=== PATIENT | female | born 1995 | race Caucasian/White ===

== ENCOUNTER 2017-02-20 17:34 | Emergency (ER) | payer MEDICAID, OTHER ==
[2017-02-20 18:08] VITALS: BP 127/80; PULSE 72; RESP 18; TEMP 99.1; O2SAT 100
--- NOTE | 2017-02-20 19:52 | ED PDOC ---
Lower Extremity Pain/Injury Time Seen by Provider: 02/20/17 19:36 Chief Complaint (Nursing): Lower Extremity Problem/Injury Chief Complaint (Provider): Lower extremity discomfrot History Per: Patient History/Exam Limitations: no limitations Onset/Duration Of Symptoms: Intermittent Episodes, Persistent (for 1 year), Worse Since (4 days ago) Current Symptoms Are (Timing): Still Present Additional Complaint(s): The patient is a 22yo female, presents to the ED for evaluation of "electric shock sensation" emanating from her foot up to her back and to her right upper extremity, intermittently present for the past year and worsening over the past 4 days. She denies any weakness, numbness, back pain. Patient additionally complaining of right calf pain. She offers no additional medical complaints. Past Medical History Reviewed: Historical Data, Nursing Documentation, Vital Signs Vital Signs: Last Vital Signs Temp 99.1 F 02/20/17 18:05 Pulse 72 02/20/17 18:05 Resp 18 02/20/17 18:05 BP 127/80 02/20/17 18:05 Pulse Ox 100 02/20/17 18:05 - Medical History PMH: Gastritis, Hiatal Hernia Denies: Chronic Kidney Disease - Surgical History Surgical History: No Surg Hx - Family History Family History: States: Unknown Family Hx - Home Medications Home Medications: Ambulatory Orders Medication Instructions Recorded Azithromycin [Zithromax Z-Talat] 250 mg PO DAILY #6 tab 09/07/15 Naproxen [Naprosyn] 500 mg PO BID PRN #30 tab 11/03/15 Ondansetron [Zofran] 4 mg PO Q8H PRN #10 tab 01/20/16 - Allergies Allergies/Adverse Reactions: Allergies Allergy/AdvReac Type Severity Reaction Status Date / Time almond Allergy ANAPHYLAXIS Verified 02/20/17 18:04 tuberculin,PPD,multi-puncture Allergy URTICARIA Verified 02/20/17 18:04 warfarin Allergy ITCHING Verified 02/20/17 18:04 Review of Systems ROS Statement: Except As Marked, All Systems Reviewed And Found Negative Constitutional: Negative for: Weakness Musculoskeletal: Positive for: Leg Pain (right calf pain), Other ("electric shock sensation" on right lower extremity, right back, and right side of neck; ) Neurological: Negative for: Weakness, Numbness Physical Exam - Reviewed Nursing Documentation Reviewed: Yes Vital Signs Reviewed: Yes - Physical Exam Appears: Positive for: Well, Non-toxic, No Acute Distress Head Exam: Positive for: ATRAUMATIC, NORMAL INSPECTION, NORMOCEPHALIC Skin: Positive for: Normal Color, Warm, DRY Eye Exam: Positive for: Normal appearance Neck: Positive for: Normal, Supple Cardiovascular/Chest: Positive for: Regular Rate, Rhythm Respiratory: Negative for: Respiratory Distress Pulses-Dorsalis Pedis (L): 2+ Pulses-Dorsalis Pedis (R): 2+ Pulses-Post. Tibialis (L): 2+ Pulses-Post. Tibialis (R): 2+ Gastrointestinal/Abdominal: Positive for: Normal Exam Back: Positive for: Normal Inspection. Negative for: Vertebral Tenderness Extremity: Positive for: Normal ROM, Other (bilateral lower extremities with 4/ 4 motor strenght; bilateral lower extremity proprioreception intact.). Negative for: Deformity, Swelling Neurologic/Psych: Positive for: Alert, Oriented. Negative for: Motor/Sensory Deficits - ECG O2 Sat by Pulse Oximetry: 100 (RA) Pulse Ox Interpretation: Normal Medical Decision Making Medical Decision Making: Time: 1950 Impression: rule out DVT Plan: -- US Doppler Lower extremity Reassess Scribe Attestation: Documented by Monalisa Escobar acting as a scribe for Eugene Akhtar MD. Provider Attestation: All medical record entries made by the Scribe were at my direction and personally dictated by me. I have reviewed the chart and agree that the record accurately reflects my personal performance of the history, physical exam, medical decision making, and the department course for this patient. I have also personally directed, reviewed, and agree with the discharge instructions and disposition. Disposition - Clinical Impression Clinical Impression: Leg paresthesia - Patient ED Disposition Is Patient to be Admitted: No Counseled Patient/Family Regarding: Studies Performed, Diagnosis, Need For Followup, Rx Given - Disposition Referrals: Rolando Lr MD [Medical Doctor] - Disposition: Routine/Home Disposition Time: 21:40 Condition: FAIR Instructions: Paresthesia (ED)
--- NOTE | 2017-02-20 21:48 | US ---
EXAM: US Duplex Right Lower Extremity Veins CLINICAL HISTORY: 22 years old, female; Pain; Leg, upper and leg, lower; Right; Additional info: R/O dvt TECHNIQUE: Real-time ultrasound scan of the veins of the right lower extremity with color Doppler flow, spectral waveform analysis and compression. COMPARISON: No relevant prior studies available. FINDINGS: Deep veins: Normal color and spectral Doppler flow. Normal compressibility. No deep vein thrombosis from common femoral to popliteal vein. Superficial veins: No thrombosis. Soft tissues: No popliteal cyst. IMPRESSION: 1. No evidence of DVT within RIGHT lower extremity. 2. Incidental/non-acute findings are described above.
== END 2017-02-20 22:16 | disposition home or self-care (01) ==
LOC: H.ER 17:34
DX: R20.2 Paresthesia of skin (principal)

== ENCOUNTER 2018-01-09 20:38 | Emergency (ER) | payer OTHER ==
--- NOTE | 2018-01-09 21:36 | ED PDOC ---
HPI: Back Time Seen by Provider: 01/09/18 21:10 Chief Complaint (Nursing): Back Pain Chief Complaint (Provider): Right sided back pain History Per: Patient History/Exam Limitations: no limitations Onset/Duration Of Symptoms: Days (x2) Current Symptoms Are (Timing): Still Present Quality Of Discomfort: "Pain" Additional Complaint(s): 22 y/o female presents to the ED with right sided back pain. Patient reports it began yesterday morning prompting her to visit her PMD. Upon seeing her PMD she was diagnosed with a muscle spasm. She was given a prescription for Robaxin which she last took at noon today with no relief. Patient states the pain worsens with movement and describes it as "sharp" or squeezing pain. Denies any fall, trauma, history of back pain, fever, chills, cough, SOB, abdominal pain, nausea, vomiting, diarrhea, urinary symptoms, incontinence, saddle anesthesia, weakness, or numbness. LMP: 12/02/2017 PMD: none provided Past Medical History Reviewed: Historical Data, Nursing Documentation, Vital Signs Vital Signs: Last Vital Signs Temp 98.3 F 01/09/18 21:05 Pulse 99 H 01/09/18 21:05 Resp 20 01/09/18 21:05 BP 115/76 01/09/18 21:05 Pulse Ox 98 01/09/18 21:05 - Medical History PMH: Gastritis, Hiatal Hernia Denies: Chronic Kidney Disease - Surgical History Surgical History: No Surg Hx - Family History Family History: States: Unknown Family Hx - Social History Current smoker - smoking cessation education provided: No Ex-Smoker (has not smoked in the last 12 months): No Alcohol: None Drugs: Denies - Home Medications Home Medications: Ambulatory Orders Medication Instructions Recorded Azithromycin [Zithromax Z-Talat] 250 mg PO DAILY #6 tab 09/07/15 Naproxen [Naprosyn] 500 mg PO BID PRN #30 tab 11/03/15 Ondansetron [Zofran] 4 mg PO Q8H PRN #10 tab 01/20/16 Cyclobenzaprine [Cyclobenzaprine 10 mg PO Q8 PRN #12 tab 01/09/18 HCl] Naproxen 500 mg PO BID PRN #20 tab 01/09/18 - Allergies Allergies/Adverse Reactions: Allergies Allergy/AdvReac Type Severity Reaction Status Date / Time almond Allergy ANAPHYLAXIS Verified 02/20/17 18:04 tuberculin,PPD,multi-puncture Allergy URTICARIA Verified 02/20/17 18:04 warfarin Allergy ITCHING Verified 02/20/17 18:04 Review of Systems ROS Statement: Except As Marked, All Systems Reviewed And Found Negative Constitutional: Negative for: Fever, Chills, Other (fall, trauma, or history of back pain) Respiratory: Negative for: Cough, Shortness of Breath Gastrointestinal: Negative for: Nausea, Vomiting, Abdominal Pain Genitourinary Female: Negative for: Incontinence, Other (urinary symptoms) Musculoskeletal: Positive for: Back Pain (right side) Neurological: Negative for: Weakness, Numbness, Other (saddle anesthesia) Physical Exam - Reviewed Nursing Documentation Reviewed: Yes Vital Signs Reviewed: Yes - Physical Exam Comments: GENERAL APPEARANCE: Patient is awake, alert, oriented x 3, in no acute distress. SKIN: Warm, dry; (-) cyanosis. EYES: (-) conjunctival pallor. ENMT: Mucous membranes moist. NECK: (-) tenderness, (-) stiffness, (-) lymphadenopathy. CHEST AND RESPIRATORY: (-) rales, (-) rhonchi, (-) wheezes; breath sounds equal bilaterally. HEART AND CARDIOVASCULAR: (-) irregularity; (-) murmur, (-) gallop. ABDOMEN AND GI: Soft; (-) tenderness; (-) palpable mass. BACK: (+) right paralumbar and parathoracic tenderness, (+) mild spasm, (-) direct bony tenderness, (-) deformity. Straight leg raising (-) bilaterally. (- ) midline tenderness EXTREMITIES: (-) deformity. Distal pulses good bilaterally. NEURO AND PSYCH: Mental status as above. Intact sensation bilaterally; normal strength in extension of the knees, plantar and dorsiflexion of the toes. DTRs symmetric. - Laboratory Results Urine POC: Negative Urine dip results: Negative for: Leukocyte Esterase, Blood, Nitrate, Ketones, Glucose, Bilirubin, Protein - ECG O2 Sat by Pulse Oximetry: 98 (RA) Pulse Ox Interpretation: Normal Medical Decision Making Medical Decision Making: Time: 21:05 Impression: Acute back pain, probable muscle spasm Plan: * UDip * Toradol 60 mg IM * Ultram 50 mg PO * Valium 5 mg PO (Not driving home) * Urinalysis * Re-evaluation 2249 Udip reviewed: unremarkable Urine : negative 2304 Patient reports improvement of back pain overall but still reports spasm like sensations to her back. Resting comfortably in no distress. Flexeril 10mg PO ordered. 2329 On re-evaluation, patient reports improvement of symptoms. On exam, patient remains AAOx3, in no acute distress. On exam, neck is supple, lungs CTA, cardiac RRR, abdomen is soft and non-tender, neuro exam shows no focal findings. Repeat HR: 86 VSS, stable for discharge. Diagnostic results d/w the patient in great detail. Dx of acute back pain/ muscle spasm d/w the patient. Based on history, exam and diagnostic results plan will be for discharge and outpatient follow up. Advised to follow up with primary care physician in 1-2 days without fail. Advised to take medication as prescribed. Return to the emergency room at any time for any new or worsening symptoms. Patient states she fully agrees with and understands discharge instructions. States that she agrees with the plan and disposition. Verbalized and repeated discharge instructions and plan. I have given the patient opportunity to ask any additional questions. Scribe Attestation: Documented by Naida Jain acting as a scribe Liana Melendrez PA-C. MD Fonseca Attestation: All medical record entries made by the Scribe were at my direction and personally dictated by me. I have reviewed the chart and agree that the record accurately reflects my personal performance of the history, physical exam, medical decision making, and the department course for this patient. I have also personally directed, reviewed, and agree with the discharge instructions and disposition. Disposition - Clinical Impression Clinical Impression: Acute back pain, Muscle spasm of back - Patient ED Disposition Is Patient to be Admitted: No Counseled Patient/Family Regarding: Studies Performed, Diagnosis, Need For Followup, Rx Given - Disposition Referrals: Ranjeet Pearl III, MD [Staff Provider] - Disposition: Routine/Home Disposition Time: 23:34 Condition: STABLE Additional Instructions: FOLLOW UP WITH PMD IN 1-2 DAYS WITHOUT FAIL. RETURN TO ED WITH ANY NEW OR WORSENING SYMPTOMS. Prescriptions: Cyclobenzaprine [Cyclobenzaprine HCl] 10 mg PO Q8 PRN #12 tab PRN Reason: Muscle Spasm Naproxen 500 mg PO BID PRN #20 tab PRN Reason: Pain, Moderate (4-7) Instructions: Low Back Pain in Adults, Upper Back Pain, Muscle Spasms (DC) Forms: [facility] (Hungarian) Print Language: WELSH - POA Present On Arrival: None
[2018-01-10 00:02] VITALS: BP 125/85; PULSE 86; RESP 15; TEMP 98; O2SAT 100
== END 2018-01-10 00:02 | disposition home or self-care (01) ==
LOC: H.ER 20:38
DX: M62.830 Muscle spasm of back (principal); M54.9 Dorsalgia, unspecified; Z87.891 Personal history of nicotine dependence
CPT/HCPCS: 81025; 96372; J1885

== ENCOUNTER 2018-11-30 12:30 | Emergency (ER) | payer OTHER ==
[2018-11-30] MEDS ORDERED: Sodium Chloride 0.9% 1,000 ML IV STA ×2 (13:33→15:28)
--- NOTE | 2018-11-30 13:53 | ED PDOC ---
HPI: Abdomen Time Seen by Provider: 11/30/18 12:48 Chief Complaint (Nursing): Abdominal Pain Chief Complaint (Provider): Abdominal Pain History Per: Patient History/Exam Limitations: no limitations Onset/Duration Of Symptoms: Days (1) Additional Complaint(s): 23 y/o female who is presents to the ED complaining of vomiting since yesterday. Patient states she is 10 weeks and been vomiting with this for the last month. She reports the vomiting has progressively worsen since yesterday. Patient states she took Reglan given by PMD without relief. Patient denies diarrhea, abdominal pain, fever, or any bloody urine. PMD: Marylu Past Medical History Reviewed: Historical Data, Nursing Documentation, Vital Signs Vital Signs: Last Vital Signs Temp 98.6 F 11/30/18 12:38 Pulse 91 H 11/30/18 12:38 Resp 20 11/30/18 12:38 BP 115/76 11/30/18 12:38 Pulse Ox 98 11/30/18 12:38 Primary Care Provider: Non [facility] Provider, - Medical History PMH: Gastritis, Hiatal Hernia Denies: Chronic Kidney Disease - Surgical History Surgical History: No Surg Hx - Family History Family History: States: Unknown Family Hx - Home Medications Home Medications: Ambulatory Orders Medication Instructions Recorded Azithromycin [Zithromax Z-Talat] 250 mg PO DAILY #6 tab 09/07/15 Naproxen [Naprosyn] 500 mg PO BID PRN #30 tab 11/03/15 Ondansetron [Zofran] 4 mg PO Q8H PRN #10 tab 01/20/16 Cyclobenzaprine [Cyclobenzaprine 10 mg PO Q8 PRN #12 tab 01/09/18 HCl] Naproxen 500 mg PO BID PRN #20 tab 01/09/18 Famotidine [Pepcid] 40 mg PO DAILY PRN #30 tab 11/30/18 Ondansetron ODT [Zofran ODT] 1 odt PO Q6 PRN #20 odt 11/30/18 - Allergies Allergies/Adverse Reactions: Allergies Allergy/AdvReac Type Severity Reaction Status Date / Time almond Allergy ANAPHYLAXIS Verified 02/20/17 18:04 tuberculin,PPD,multi-puncture Allergy URTICARIA Verified 02/20/17 18:04 warfarin Allergy ITCHING Verified 02/20/17 18:04 Review of Systems ROS Statement: Except As Marked, All Systems Reviewed And Found Negative Constitutional: Negative for: Fever Gastrointestinal: Negative for: Abdominal Pain, Diarrhea, Hematemesis Physical Exam - Reviewed Nursing Documentation Reviewed: Yes Vital Signs Reviewed: Yes - Physical Exam Appears: Positive for: Well, Non-toxic, No Acute Distress Head Exam: Positive for: ATRAUMATIC, NORMAL INSPECTION, NORMOCEPHALIC Skin: Positive for: Normal Color, Warm, Dry Eye Exam: Positive for: EOMI, Normal appearance, PERRL ENT: Positive for: Normal ENT Inspection Neck: Positive for: Normal, Painless ROM, Supple Cardiovascular/Chest: Positive for: Regular Rate, Rhythm. Negative for: Murmur Respiratory: Positive for: Normal Breath Sounds. Negative for: Wheezing Gastrointestinal/Abdominal: Positive for: Normal Exam, Soft. Negative for: Tenderness Back: Positive for: Normal Inspection. Negative for: L CVA Tenderness, R CVA Tenderness Extremity: Positive for: Normal ROM Neurological/Psych: Positive for: Awake, Alert, Normal Tone, Oriented (x3). Negative for: Motor/Sensory Deficits - Laboratory Results Result Diagrams: 11/30/18 14:39 11/30/18 14:39 - ECG O2 Sat by Pulse Oximetry: 98 Medical Decision Making Medical Decision Making: Time:1333 Initial Impression: Vomiting, . Hyperemesis, gastritis, unlikely pancreatitis and colitis. Initial Plan: -CMP -Lipase -ED urine -CBC -Sodium chloride -Zofran 4mg Scribe Attestation: Documented by Eva Fraser, acting as a scribe for Richar Mendoza Provider Scribe Attestation: All medical record entries made by the Scribe were at my direction and personally dictated by me. I have reviewed the chart and agree that the record accurately reflects my personal performance of the history, physical exam, medical decision making, and the department course for this patient. I have also personally directed, reviewed, and agree with the discharge instructions and disposition. 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 ADVANCE DIET SLOWLY TOLERATED. Prescriptions: Famotidine [Pepcid] 40 mg PO DAILY PRN #30 tab PRN Reason: reflux Ondansetron ODT [Zofran ODT] 1 odt PO Q6 PRN #20 odt PRN Reason: Nausea/Vomiting Instructions: Hyperemesis Gravidarum Patient Signed Over To: Alexus Stein
[2018-11-30 14:48] LABS: BASO % 0.2 % (0.0-2.0); EOS % 0.1 % (0.0-4.0); HEMOGLOBIN 13.6 g/dL (12.0-16.0); LYMPH % 10.3 % (20.0-40.0); MEAN CELL VOLUME 84.7 fl (81.0-99.0); MEAN CORPUSCULAR HEMOGLOBIN 28.3 pg (27.0-31.0); MEAN CORPUSCULAR HGB CONC 33.4 g/dL (33.0-37.0); MEAN PLATELET VOLUME 9.3 fl (7.2-11.7); MONO # 0.5 K/uL (0.0-0.8); MONO % 4.7 % (0.0-10.0); NEUT # 8.4 K/uL (1.8-7.0); NEUT % 84.7 % (50.0-75.0); RBC 4.81 Mil/uL (3.80-5.20); RED CELL DISTRIBUTION WIDTH 14.5 % (11.5-14.5); WHITE BLOOD COUNT 9.9 K/uL (4.8-10.8)
[2018-11-30 15:06] LABS: ALB/GLOB RATIO 1.3 (1.0-2.1); ALT/SGPT 54 U/L (9-52); AST/SGOT 38 U/L (14-36); BLOOD UREA NITROGEN 7 mg/dl (7-17); CALCIUM 9.1 mg/dL (8.4-10.2); GFR NON-AFRICAN AMERICAN > 60; LIPASE 105 U/L (23-300)
[2018-11-30] MEDS ORDERED: Dextrose 5%/Lactated Ringer's 1,000 ML IV SCH (16:30)
--- NOTE | 2018-11-30 16:34 | ED PDOC ---
- Laboratory Results Result Diagrams: 11/30/18 14:39 11/30/18 14:39 Lab Results: Total Bilirubin 0.5 mg/dl (0.2-1.3) 11/30/18 14:39 AST 38 U/L (14-36) H 11/30/18 14:39 ALT 54 U/L (9-52) H D 11/30/18 14:39 Alkaline Phosphatase 120 U/L (38-126) 11/30/18 14:39 Total Protein 7.2 G/DL (6.3-8.2) 11/30/18 14:39 Albumin 4.0 g/dL (3.5-5.0) 11/30/18 14:39 Globulin 3.2 gm/dL (2.2-3.9) 11/30/18 14:39 Albumin/Globulin Ratio 1.3 (1.0-2.1) 11/30/18 14:39 Lipase 105 U/L (23-300) 11/30/18 14:39 - ECG O2 Sat by Pulse Oximetry: 98 (RA) Pulse Ox Interpretation: Normal Medical Decision Making Medical Decision Making: Time: 1529 --Patient with hyperemesis and gravidarum signed out to this provider by Dr. Mendoza, pending PO challenge. Time: 1614 --On reevaluation, patient denies any more episodes of vomiting. However, when he drank water she felt nauseous and like she would vomiting again. Ordered fluids, IV Zofan, Pepcid, and reglan. 2100 No vomiting in ER. Tolerated po. 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 Provider Scribe Attestation: All medical record entries made by the Scribe were at my direction and personally dictated by me. I have reviewed the chart and agree that the record accurately reflects my personal performance of the history, physical exam, medical decision making, and the department course for this patient. I have also personally directed, reviewed, and agree with the discharge instructions and disposition. 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 ADVANCE DIET SLOWLY TOLERATED. Prescriptions: Famotidine [Pepcid] 40 mg PO DAILY PRN #30 tab PRN Reason: reflux Ondansetron ODT [Zofran ODT] 1 odt PO Q6 PRN #20 odt PRN Reason: Nausea/Vomiting Instructions: Hyperemesis Gravidarum
[2018-11-30 22:18] VITALS: BP 122/78; PULSE 86; RESP 18; TEMP 98.4
[2018-12-01 11:38] VITALS: O2SAT 98
== END 2018-11-30 21:50 | disposition home or self-care (01) ==
LOC: H.ER 12:30 → SUPCPDRO 12:30 → H.ER 21:50
DX: O21.0 Mild hyperemesis gravidarum (principal); Z3A.10 10 weeks gestation of pregnancy
CPT/HCPCS: 80053; 81025; 83690; 85025; 96361; 96374; 96375; 96376; 99284; J2405; J2765; J7030; J7120